=== PATIENT | male | born 1965 | race Caucasian/White ===

== ENCOUNTER 2018-04-18 08:28 | Inpatient (IN) | payer OTHER ==
[~2018-04-18] VITALS: Ht 182.9 cm; Wt 79.5 kg
[~2018-04-18 08:28] MED LIST: ASPIRIN81 M4 PO; ATORVASTATIN CA80 M1 PO; CUBICIN RF500 MG IV; DEXTROAMP-AMPHE20 MG PO; HYDROCODON-ACE1 EAC1 PO; LORAZEPAM0.5 M1 PO; METOPROLOL SUCC25 M1 PO; OXYBUTYNIN CHLOR5 M2 PO; TRAMADOL HCL50 M1 PO; TYSABRI300 MG/15 IV; VITAMIN D10000 UNIT PO; [UNRECOGNIZED DRUG - CODE] IV
--- NOTE | 2018-04-18 09:53 | ED GI/GU/ABDOMINAL COMPLAINT ---
History of Present Illness General Chief Complaint: General Adult Stated Complaint: SIB DR. CHEUNG FOR ?COLITIS Source: patient Exam Limitations: poor historian Vital Signs & Intake/Output Vital Signs & Intake/Output Vital Signs Date Time Temp Pulse Resp B/P B/P Pulse O2 O2 Flow FiO2 Mean Ox Delivery Rate 04/18 1418 98.8 74 20 151/70 96 04/18 1045 98.0 88 18 124/85 98 04/18 0834 98.4 92 18 107/71 98 Room Air Allergies Coded Allergies: methylprednisolone (From SOLU-MEDROL) (CHEST TIGHTNESS 03/26/17) Reconcile Medications Aspirin (Aspirin*) 81 MG TAB.CHEW 81 MG PO DAILY NSTEMI Atorvastatin Calcium 80 MG TABLET 80 MG PO 1700 NSTEMI Cholecalciferol (Vitamin D3) (Vitamin D) 10,000 UNIT CAPSULE 2 CAP PO DAILY SUPPLEMENT (Reported) Daptomycin (Cubicin Rf) 500 MG VIAL 500 MG IV Q30D multiple sclerosis ( Reported) Heparin Sodium,Porcine/D5w (Heparin 25,000 Unit/250 Ml-D5w) 25,000 UNIT/250 ML ( 100 UNIT/ML) IV.SOLN 1 BAG IV CONTINOUS INFUSION ACS per ACS protocol Hydrocodone/Acetaminophen (Hydrocodon-Acetaminophn 10-325) 10 MG-325 MG TABLET 1 TAB PO 4XDP PRN PAIN (Reported) Lorazepam 0.5 MG TABLET 1-2 TAB PO QPM PRN SLEEP (Reported) Metoprolol Succinate 25 MG TAB 6.25 MG PO BID NSTEMI Natalizumab (Tysabri) (Unknown Strength) VIAL (Unknown Dose) IV Q30D MS ( Reported) Oxybutynin Chloride 5 MG TABLET 1 TAB PO BID PRN BLADDER (Reported) Tramadol HCl 50 MG TABLET 1 TAB PO AD PRN PAIN (Reported) Triage Note: 52 YO MALE TO TRIAGE FOR EVAL OF ABD PAIN AND +NVD. STATES HX OF MS AND RECETNLY STARTED ON RUTUXIN AND SINCE THEN HE HAS BEEN HAVING +DIARRHEA. Triage Nurses Notes Reviewed? yes HPI: 52-year-old male who presents to the emergency department with intermittent abdominal cramping pain and diarrhea. He tells me that last Saturday, approximately a week and a half ago, he was started on Rituxan for his multiple sclerosis. Since then he's had significant problems with abdominal cramping and diarrhea. He denies any blood in his stool. He denies any nausea or vomiting. He does say that he is unable to eat but is able to tolerate his oral medications. His abdominal pain is diffuse in the lower abdomen. He denies any fevers or chills. Nothing really seems to help his pain. He is unaware of anything that makes it worse. Past History Travel History Traveled to [place] past 21 day No Medical History Any Pertinent Medical History? see below for history Neurological: multiple sclerosis EENT: NONE Cardiovascular: myocardial infarction Respiratory: NONE Gastrointestinal: NONE Hepatic: NONE Renal: NONE Musculoskeletal: NONE Psychiatric: NONE Endocrine: NONE Blood Disorders: NONE Cancer(s): NONE Other Medical Hx: Lyme disease History of MRSA: No History of VRE: No History of CDIFF: No Surgical History Surgical History: COLONOSCOPY - SEP 2016 WNL multiple lumbar back surgeries Psychosocial History Who do you live with Patient/Self What is your primary language Korean Tobacco Use: Never used Family History Family History, If Any: Relation not specified for: *No pertinent family history Hx Contributory? Yes Review of Systems Review of Systems Constitutional: Reports: no symptoms, malaise, weakness. Denies: chills, diaphoresis, fever. EENTM: Reports: see HPI. Denies: blurred vision, double vision, visual changes, eye pain. Respiratory: Denies: cough, short of breath, sputum production. Cardiovascular: Denies: chest pain, edema, orthopena, palpitations. GI: Reports: see HPI, abdominal pain, bloating, diarrhea, changes in stool. Denies: melena, nausea, bloody stool, vomiting. Genitourinary: Reports: see HPI (INCONTINENCE RELATED TO ms). Skin: Denies: no symptoms. Neurological/Psychological: Reports: numbness, tingling (RELATED TO HIS ms), weakness. Hematologic/Endocrine: Denies: no symptoms. All Other Systems: Reviewed and Negative Physical Exam Physical Exam General Appearance: well developed/nourished, no apparent distress, lethargic Head: atraumatic, normal appearance Eyes: Bilateral: normal appearance. Neck: normal inspection, supple, full range of motion Respiratory: normal breath sounds, no respiratory distress Cardiovascular: regular rate/rhythm Gastrointestinal: normal bowel sounds, tenderness Rectal: deferred Extremities: normal range of motion Neurologic/Psych: awake, alert Core Measures ACS in differential dx? No Sepsis Present: No Sepsis Focused Exam Completed? No Progress Differential Diagnosis: COLITIS, GASTROENTERITIS Plan of Care: Orders Procedure Date/time Status CULTURE,STOOL 04/18 1038 Active C.DIFFICILE 04/18 1038 Active CBC WITHOUT DIFFERENTIAL 04/18 0953 Complete LIPASE 04/18 09 Complete COMPREHENSIVE METABOLIC PANEL 04/18 09 Complete Current Medications Sig/Bina Start time Last Medication Dose Stop Time Status Admin Metronidazole 500 MG IQ8 04/18 1600 UNVr (Flagyl) N/A 1 UNIT (No Carrier) Ceftriaxone Sodium 1,000 MG ONCE ONE 04/18 1545 UNVr (Rocephin) 04/18 1546 Laboratory Tests 04/18/18 1015: Anion Gap 13, Estimated GFR > 60, BUN/Creatinine Ratio 17.1, Glucose 112 H, Calcium 9.7, Total Bilirubin 0.4, AST 33, ALT 27, Alkaline Phosphatase 107, Total Protein 7.2, Albumin 4.6, Globulin 2.6, Albumin/Globulin Ratio 1.8, Lipase 33, CBC w Diff MAN DIFF ORDERED, RBC 5.52, MCV 89.5, MCH 30.2, MCHC 33.7, RDW 13.8, MPV 7.8, Gran % 71.4, Lymphocytes % 17.5 L, Monocytes % 9.4 H, Eosinophils % 1.4, Basophils % 0.3, Absolute Granulocytes 12.9 H, Absolute Lymphocytes 3.2, Absolute Monocytes 1.7 H, Absolute Eosinophils 0.3, Absolute Basophils 0, Platelet Estimate ADEQUATE, Normocytic RBCs VERIFIED, Normochromic RBCs VERIFIED Microbiology 04/18 1236 STOOL: Clostridium difficile Toxin A & B - RECD 04/18 1236 STOOL: Stool Culture - RECD Pt CT scan notes pancolitis with wbc 18k. pt continues to have frequent stools. Discussed his case with the hospitalist and they will admit. MOD paged. Waiting to hear back. Diagnostic Imaging: Viewed by Me: CT Scan. Radiology Impression: pancolitis Initial ED EKG: none Departure Departure Disposition: STILL A PATIENT Condition: Stable Clinical Impression Primary Impression: Pancolitis Referrals: Patient Has No Primary Care Dr (PCP/Family) Departure Forms: Customer Survey General Discharge Information Admission Note Spoke With: Tamika DANG,Luis Angel Documentation of Exam: Documentation of any treatments & extenuating circumstances including Concerns Regarding Discharge (functional status, medication knowledge or non-compliance, living conditions, etc.) that warrant an admission rather than observation: Discussed pancolitis diagnosis with wbc. possibly rituxan induced. c.diff pending. ivf and IV abx needed. Admission to medicine is pending. Both hospitalist monitor worker and MOD aware.
[2018-04-18 10:25] LABS: ABSOLUTE BASOPHIL COUNT 0 /CUMM (0.0-0.2); ABSOLUTE EOSINOPHIL COUNT 0.3 /CUMM (0.0-0.7); ABSOLUTE GRANULOCYTE CT 12.9 /CUMM (1.4-6.5); ABSOLUTE LYMPH COUNT 3.2 /CUMM (1.2-3.4); ABSOLUTE MONOCYTE COUNT 1.7 /CUMM (0.10-0.60); BASOPHIL % 0.3 % (0.0-2.0); EOSINOPHIL % 1.4 % (0-5); HEMATOCRIT 49.4 % (42-52); MEAN CORPUSCULAR HGB 30.2 PG (27.0-31.0); MEAN CORPUSCULAR HGB CONC 33.7 G/DL (33.0-37.0); MEAN CORPUSCULAR VOLUME 89.5 FL (80.0-94.0); MEAN PLATELET VOLUME 7.8 FL (7.4-10.4); PLATELET COUNT 363 /CUMM (130-400); RBC DISTRIBUTION WIDTH 13.8 % (11.5-14.5); RED BLOOD CELL CT 5.52 /CUMM (4.70-6.10)
[2018-04-18 10:27] LABS: GRANULOCYTE % 71.4 % (42.2-75.2)
--- NOTE | 2018-04-18 14:43 | CT SCAN REPORT ---
EXAMINATION: CT ABDOMEN AND PELVIS WITH CONTRAST CLINICAL INFORMATION: Abdominal pain, colitis. COMPARISON: None TECHNIQUE: Multidetector volumetric imaging was performed of the abdomen and pelvis following IV administration of 95 mL of Optiray 320 intravenous contrast. Sagittal and coronal reformatted images were obtained on the technologist's workstation. DLP: 271 mGy-cm FINDINGS: LUNG BASES: The visualized lung bases are unremarkable. Bibasilar atelectasis is present. LIVER, GALLBLADDER, AND BILIARY TREE: The liver is normal in size, shape, and attenuation. No focal hepatic lesion or biliary ductal dilatation is present. The gallbladder is unremarkable with no evidence of radiopaque gallstones, gallbladder wall thickening, or obvious pericholecystic inflammatory changes. PANCREAS: Scattered punctate calcifications are noted in the pancreas which suggests the presence of old pancreatitis. SPLEEN: Unremarkable. ADRENAL GLANDS: Unremarkable. KIDNEYS AND URETERS: The kidneys are normal in size, shape, and attenuation. No hydronephrosis, hydroureter, or calculi seen. No perinephric stranding. BLADDER: Unremarkable. GASTROINTESTINAL TRACT: The entire colon is abnormal with what appears to be mucosal edema and thickening. Findings are suggestive of a koo colitis. The terminal ileum is normal. The appendix is not seen with certainty but there is no evidence to suggest the presence of appendicitis. ABDOMINAL WALL: No significant hernia is appreciated. LYMPH NODES: Normal. VASCULAR: Atherosclerotic change is present in the aorta with mild dilatation of the inferior renal aorta with a maximal dimension of 2.85 cm. At a level just below the renal arteries, some eccentric posterior non-calcified thrombus is present. The celiac, SMA and FRANCISCO are patent. Atherosclerotic changes are present at both renal ostia. PELVIC VISCERA: The prostate and seminal vesicles appear normal. OSSEOUS STRUCTURES: Severe degenerative changes present in the spine with near obliteration of disc space at L4-L5 and L5-S1. The SI joints are normal. The hip joints appear normal. IMPRESSION: Markedly abnormal colon with thickening and edema throughout. Findings consistent with koo colitis. Ulcerative colitis would be the differential along with other etiologies.
--- NOTE | 2018-04-18 17:08 | History & Physical ---
Maile DANG,Khadra 04/18/18 1707: General Information and HPI MD Statement: I have seen and personally examined JUAN R SOLER and documented this H&P. The patient is a 52 year old M who presented with a patient stated chief complaint of []. Source of Information: patient, old records, EMS Exam Limitations: no limitations History of Present Illness: Patient is a 52 YO M with PMH signficant for MS diagnosed 2005, urinary incontinence, NSTEMI, medical marijuana presented to [place] with progressive diarrhea, nausea, abdominal pain for the past week. Pateint was started on Rituximab on apr 08 with discontinuation of dapto/natalizumab ( as AIMEE virus positive) after which his symptoms started to get worse. He reports loose watery stools without any blood/mucus upto 10 per day. He did report fevers on and off, never checked, abdominal pain diffuse not specifically related to bowel movement. Significantly impaired appetite. MS diagnosed 2005 was on dapto/natalizumab monthly infusions. Urinary incontinence and lower extermity weakness secondary to it impairs ADLs although able to perform, uses rollator to walk. Lives alone. Speaks depressed secondary to disease. Allergies/Medications Allergies: Coded Allergies: methylprednisolone (From SOLU-MEDROL) (CHEST TIGHTNESS 03/26/17) Home Med list Aspirin (Aspirin*) 81 MG TAB.CHEW 81 MG PO DAILY NSTEMI Atorvastatin Calcium 80 MG TABLET 80 MG PO 1700 NSTEMI Cholecalciferol (Vitamin D3) (Vitamin D) 10,000 UNIT CAPSULE 2 CAP PO DAILY SUPPLEMENT (Reported) Hydrocodone/Acetaminophen (Hydrocodon-Acetaminophn 10-325) 10 MG-325 MG TABLET 1 TAB PO 4XDP PRN PAIN (Reported) Lorazepam 0.5 MG TABLET 1-2 TAB PO QPM PRN SLEEP (Reported) Metoprolol Succinate 25 MG TAB 6.25 MG PO BID NSTEMI Oxybutynin Chloride 5 MG TABLET 1 TAB PO BID PRN BLADDER (Reported) Tramadol HCl 50 MG TABLET 1 TAB PO AD PRN PAIN (Reported) Compliance With Home Meds: FAIR Past History Travel History Traveled to [place] past 21 day No Medical History Neurological: multiple sclerosis EENT: NONE Cardiovascular: myocardial infarction Respiratory: NONE Gastrointestinal: NONE Hepatic: NONE Renal: NONE Musculoskeletal: NONE Psychiatric: NONE Endocrine: NONE Blood Disorders: NONE Cancer(s): NONE Other Medical Hx: Lyme disease History of MRSA: No History of VRE: No History of CDIFF: No Surgical History Surgical History: COLONOSCOPY - SEP 2016 WNL multiple lumbar back surgeries Past Family/Social History Family History Relations & Conditions if any Relation not specified for: *No pertinent family history Psychosocial History Smoking Status: Current Everyday Smoker Illicit Drug Use: marijuana Living Will? no Functional Ability ADLs Independent: dressing, eating, toileting, bathing. Ambulation: rollator IADLs Independent: shopping, housework, finances, food prep, telephone, transportation , medication admin. Review of Systems Review of Systems Constitutional: Reports: see HPI. Exam & Diagnostic Data Last 24 Hrs of Vital Signs/I&O Vital Signs Date Time Temp Pulse Resp B/P B/P Pulse O2 O2 Flow FiO2 Mean Ox Delivery Rate 04/18 1418 98.8 74 20 151/70 96 04/18 1045 98.0 88 18 124/85 98 04/18 0834 98.4 92 18 107/71 98 Room Air Intake & Output 04/18 1600 04/18 0800 04/18 0000 Intake Total 1000 Output Total Balance 1000 Intake, IV 1000 Intake, Oral 0 Patient 81.647 kg Weight Weight Reported by Patient Measurement Method Physical Exam General Appearance Alert, Oriented X3, Cooperative, depressed Skin No Rashes, No Breakdown Skin Temp/Moisture Exam: Warm/Dry Sepsis Skin Exam (color): Normal for Ethnicity HEENT Atraumatic, PERRLA, EOMI Neck Supple, No JVD Cardiovascular Regular Rate, Normal S1, Normal S2 Lungs Clear to Auscultation, Normal Air Movement Abdomen Normal Bowel Sounds, Soft, tenderness in the left lower quadrant with deep palpation Neurological Normal Speech, Normal Tone, decreased strenght in lower extremities Extremities No Clubbing, No Cyanosis, No Edema Body Front and Back (Adult) 1) decreased strength 2) abdominal tenderness present Last 24 Hrs of Labs/Nathan: Laboratory Tests 04/18/18 1015: Anion Gap 13, Estimated GFR > 60, BUN/Creatinine Ratio 17.1, Glucose 112 H, Lactic Acid Pending, Calcium 9.7, Total Bilirubin 0.4, AST 33, ALT 27, Alkaline Phosphatase 107, Total Protein 7.2, Albumin 4.6, Globulin 2.6, Albumin/Globulin Ratio 1.8, Lipase 33, CBC w Diff MAN DIFF ORDERED, RBC 5.52, MCV 89.5, MCH 30.2, MCHC 33.7, RDW 13.8, MPV 7.8, Gran % 71.4, Lymphocytes % 17.5 L, Monocytes % 9.4 H, Eosinophils % 1.4, Basophils % 0.3, Absolute Granulocytes 12.9 H, Absolute Lymphocytes 3.2, Absolute Monocytes 1.7 H, Absolute Eosinophils 0.3, Absolute Basophils 0, Platelet Estimate ADEQUATE, Normocytic RBCs VERIFIED, Normochromic RBCs VERIFIED Microbiology 04/18 1744 STOOL: Ova and Parasite Macroscopic Exam - ORD 04/18 1236 STOOL: Clostridium difficile Toxin A & B - RECD 04/18 1236 STOOL: Stool Culture - RECD Assessment/Plan Assessment: Patient is a 52 YO middle aged male presented to ER with progressive diarrhea, nausea, abdominal pain after started on rituxin infusion first dose on apr 08 for Multiple sclerosis. Patient was on dapto/natalizumab infusions previously. Loose watery diarrhea without blood/mucus, diffuse abdominal pain, on and off fevers/chills. VS stable at presentation. Labs are significant for white count of 18, granulocytosis (mild), normal Cr. Lactic acid pending. CT abdomen and pelvis suggestive of pancolitis. Stool studies for C.diff and cultures, ova, parasites sent. Differential Dawson colitis Probably due to Rituximab, other possibilities are C.diff, infectious vs inflammatory causes. He did have leukocytosis might be reactive. Plan Admit to general medicine floor Dawson-colitis * stool for C.diff, culture, ova and parasites * IV metronidazole, ceftriaxone (mucosal seapage) * If positive for C.diff add oral vanco * Full liquid diet * Gentle hydration H/o MS Patient was on dapto/natalizumab. 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 Started on rituximab and had colitis after first dose. * Hold rituximab * Continue pain medicaitons Urinary incontinence MS related * continue oxybutynin 5mg BID h/o NSTEMI continue Aspirin, Atorvastatin * Patient was unsure if on metoprolol, needs to be confirmed Depressed Patient is very depressed about his quality of life. Please consider psych evaluation. DVT prophylaxis SC heparin Code status DNR/DNI per patient -- needs to be readdressed As Ranked By This Provider Problem List: 1. Pancolitis Core Measures/Misc (04/21) Acute Coronary Syndrome ACS Diagnosis: No Congestive Heart Failure Congestive Heart Failure Diagnosis No Cerebrovascular Accident CVA/TIA Diagnosis: No VTE (View Protocol) VTE Risk Factors Acute Medical Illness No Mechanical VTE Prophylaxis d/t N/A MechProphylax Ordered No VTE Pharm Prophylaxis d/t NA PharmProphylax ordered Sepsis (View protocol) Sepsis Present: No If YES complete Sepsis Event Note If YES complete Sepsis Event Note Luis Angel Lundberg 04/18/18 1711: Core Measures/Misc (04/21) Sepsis (View protocol) If YES complete Sepsis Event Note If YES complete Sepsis Event Note Attending MD Review Statement Attending Statement Attending MD Statement: examined this patient, discuss w/resident/PA/EDGE STRIPPER, agreed w/resident/PA/EDGE STRIPPER, discussed with family, reviewed EMR data (avail), discussed with nursing, discussed with case mgmt, reviewed images, amended to note Attending Assessment/Plan: 52 o/m with pmh of NSTEMI and Multiple sclerosis comes with diarrhea for few days sent from Dr Roth office recently started on rituxan for MS. Patient attributes to his symptoms to his new medication regimen. He is found to have leukocytosis WBC [address] abdomen/pelvis. He denies eating outside or blood in stools. Admit to gen/med for pancolitis, profuse diarrhea and dehydration requiring supprotive care with IVF, empiric abx and send stool samples to rule out infectious causes. Consult GI and continue with supportive care for his MS. He uses rollator at home to walk. GI/DVT prophylaxis full code.
[2018-04-18 18:15] VITALS: BP 142/82
[2018-04-18 22:11] VITALS: BP 146/80
--- NOTE | 2018-04-19 02:36 | PN- Housestaff ---
See Addendum Subjective Follow-up For: Pancolitis Multiple Sclerosis Urinary incontinence Subjective: Patient still had significant diarrhea, throughout the night he had significant spasms. He reports improvement in abdominal pain, however painful everywhere else. No fevers overnight. Lost his IV and not on IV fluids since 4am. Review of Systems Constitutional: Reports: see HPI. Objective Last 24 Hrs of Vital Signs/I&O Vital Signs Date Time Temp Pulse Resp B/P B/P Pulse O2 O2 Flow FiO2 Mean Ox Delivery Rate 04/18 2211 98.4 85 18 146/80 98 Room Air 04/18 1815 98.2 70 18 142/82 97 Room Air Room Air 04/18 1741 98.6 85 18 136/84 98 Room Air 04/18 1418 98.8 74 20 151/70 96 04/18 1045 98.0 88 18 124/85 98 04/18 0834 98.4 92 18 107/71 98 Room Air Intake & Output 04/19 0800 04/19 0000 04/18 1600 Intake Total 1000 Output Total 100 Balance -100 1000 Intake, IV 1000 Intake, Oral 0 Output, Urine 100 Patient 71.894 kg 81.647 kg Weight Weight Bed scale Reported by Patient Measurement Method Physical Exam General Appearance: Alert, Oriented X3, Cooperative Skin: No Rashes, No Breakdown Skin Temp/Moisture Exam: Warm/Dry HEENT: Atraumatic, PERRLA, EOMI Neck: Supple, No JVD Cardiovascular: Regular Rate, Normal S1, Normal S2 Lungs: Clear to Auscultation, Normal Air Movement Abdomen: Normal Bowel Sounds, Soft, mild tenderness present - on commode Current Medications: Current Medications Sig/Bina Start time Last Medication Dose Route Stop Time Status Admin Acetaminophen 650 MG Q6P PRN 04/180 AC PO Acetaminophen 1,000 MG Q6P PRN 04/18 2130 AC IV Aspirin 81 MG DAILY 04/19 09 AC 04/19 PO 0944 Atorvastatin Calcium 80 MG 1700 04/19 1700 AC PO Baclofen 10 MG TID PRN 04/19 09 AC PO Ceftriaxone Sodium 1,000 MG 1600 04/19 1600 AC IV Ceftriaxone Sodium 0 .STK-MED ONE 04/18 1602 DC .ROUTE Ceftriaxone Sodium 1,000 MG ONCE ONE 04/18 1545 DC 04/18 IV 04/18 1546 1609 Cholecalciferol 1,000 IU DAILY 04/19 0900 AC 04/19 PO 0944 Heparin Sodium 5,000 UNIT Q8 04/18 1743 AC 04/19 (Porcine) SC 0513 Hydrocodone Bitart/ 1 TAB Q4-6 PRN 04/18 1815 AC 04/19 Acetaminophen PO 0943 Hydroxyzine HCl 25 MG ONCE ONE 04/19 0400 DC 04/19 PO 04/19 0401 0413 Lorazepam 0.5 MG ONCE ONE 04/19 0115 DC 04/19 PO 04/19 0116 0141 Lorazepam 1 MG AT BEDTIME PRN 04/18 1845 AC 04/19 PO 0018 Lorazepam See Dose QPM PRN 04/18 1815 DC Insts (1) PO 04/25 1814 Melatonin 0 .STK-MED ONE 04/19 0413 DC PO Melatonin 5 MG AT BEDTIME 04/19 0400 AC 04/19 PO 0413 Metronidazole 500 MG IQ8 04/19 0000 AC 04/19 N/A 1 UNIT IV 0944 Metronidazole 500 MG IQ8 04/18 1600 DC 04/18 N/A 1 UNIT IV 1609 Nicotine 21 MG DAILY 04/18 2041 AC 04/19 TOP 0943 Oxybutynin Chloride 5 MG BID PRN 04/18 1815 AC 04/19 PO 0944 Oxycodone HCl 0 .STK-MED ONE 04/18 1318 DC PO Oxycodone HCl 5 MG ONCE ONE 04/18 1315 DC 04/18 PO 04/18 1316 1330 Sodium Chloride 1,000 ML Q13H 04/18 1830 AC 04/19 IV 0937 Sodium Chloride 1,000 ML CONTINOUS INFUSION 04/18 1715 DC IV Sodium Chloride 1,000 ML BOLUS ONE 04/18 1615 DC 04/18 IV 04/18 1714 1609 Sodium Chloride 1,000 ML BOLUS ONE 04/18 1200 DC 04/18 IV 04/18 1259 1234 Sodium Chloride 1,000 ML BOLUS ONE 04/18 0930 DC 04/18 IV 04/18 1029 1013 Tramadol HCl 50 MG DAILY 04/19 0900 AC PO Dose Instructions: (1)Lorazepam: 1-2 TAB Last 24 Hrs of Lab/Nathan Results Last 24 Hrs of Labs/Mics: Laboratory Tests 04/19/18 0620: Anion Gap 12, Estimated GFR > 60, BUN/Creatinine Ratio 11.7, CBC w Diff NO MAN DIFF REQ, RBC 4.84, MCV 89.2, MCH 30.6, MCHC 34.3, RDW 14.1, MPV 8.4, Gran % 73.9, Lymphocytes % 15.3 L, Monocytes % 9.0, Eosinophils % 1.4, Basophils % 0.4 , Absolute Granulocytes 11.8 H, Absolute Lymphocytes 2.4, Absolute Monocytes 1.4 H, Absolute Eosinophils 0.2, Absolute Basophils 0.1 04/18/18 2200: Urine Color YEL, Urine Clarity CLEAR, Urine pH 6.0, Ur Specific [place] 1.020, Urine Protein NEG, Urine Ketones 40 H, Urine Nitrite NEG, Urine Bilirubin NEG, Urine Urobilinogen 0.2, Ur Leukocyte Esterase NEG, Ur Microscopic EXAM NOT REQUIRED, Urine Hemoglobin NEG, Urine Glucose NEG 04/18/18 1015: Anion Gap 13, Estimated GFR > 60, BUN/Creatinine Ratio 17.1, Glucose 112 H, Lactic Acid 1.8, Calcium 9.7, Total Bilirubin 0.4, AST 33, ALT 27, Alkaline Phosphatase 107, Total Protein 7.2, Albumin 4.6, Globulin 2.6, Albumin/Globulin Ratio 1.8, Lipase 33, CBC w Diff MAN DIFF ORDERED, RBC 5.52, MCV 89.5, MCH 30.2, MCHC 33.7, RDW 13.8, MPV 7.8, Gran % 71.4, Lymphocytes % 17.5 L, Monocytes % 9.4 H, Eosinophils % 1.4, Basophils % 0.3, Absolute Granulocytes 12.9 H, Absolute Lymphocytes 3.2, Absolute Monocytes 1.7 H, Absolute Eosinophils 0.3, Absolute Basophils 0, Platelet Estimate ADEQUATE, Normocytic RBCs VERIFIED, Normochromic RBCs VERIFIED Microbiology 04/18 4314 STOOL: Ova and Parasite Macroscopic Exam - COLB 04/18 1236 STOOL: Clostridium difficile Toxin A & B - RECD 04/18 1236 STOOL: Stool Culture - RECD Assessment/Plan Assessment: Patient is a 52 YO middle aged male presented to ER with progressive diarrhea, nausea, abdominal pain after started on rituxin infusion first dose on apr 08 for Multiple sclerosis. Patient was on dapto/natalizumab infusions previously. Loose watery diarrhea without blood/mucus, diffuse abdominal pain, on and off fevers/chills. VS stable at presentation. Labs are significant for white count of 18, granulocytosis (mild), normal Cr. Lactic acid pending. CT abdomen and pelvis suggestive of pancolitis. Stool studies for C.diff and cultures, ova, parasites sent. Plan Admit to general medicine floor Dawson-colitis Likely secondary to rituximab * stool for C.diff, culture, ova and parasites * IV metronidazole, ceftriaxone (mucosal seapage) * If positive for C.diff add oral vanco * Full liquid diet - advance as tolerated * Gentle hydration H/o MS Patient was on dapto/natalizumab. 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 Started on rituximab and had colitis after first dose. Ideally rituximab is not a good choice for patient with AIMEE virus, however now it is not a option anymore given intolerance. * Hold rituximab * Continue pain medicaitons * Consider other options like mitoxantrone Urinary incontinence MS related * continue oxybutynin 5mg BID h/o NSTEMI continue Aspirin, Atorvastatin * Patient was unsure if on metoprolol, needs to be confirmed Depressed Patient is very depressed about his quality of life. Please consider psych evaluation. DVT prophylaxis SC heparin Code status DNR/DNI per patient -- needs to be readdressed Problem List: 1. Pancolitis Pain Ratin Pain Location: everywhere Pain Goal: Pain 4 or less Pain Plan: tylenol vicodin Tomorrow's Labs & Rationales: cbc bep
[2018-04-19 07:36] VITALS: BP 126/65
[2018-04-19 08:18] LABS: ABSOLUTE BASOPHIL COUNT 0.1 /CUMM (0.0-0.2); ABSOLUTE EOSINOPHIL COUNT 0.2 /CUMM (0.0-0.7); ABSOLUTE GRANULOCYTE CT 11.8 /CUMM (1.4-6.5); ABSOLUTE LYMPH COUNT 2.4 /CUMM (1.2-3.4); ABSOLUTE MONOCYTE COUNT 1.4 /CUMM (0.10-0.60); BASOPHIL % 0.4 % (0.0-2.0); EOSINOPHIL % 1.4 % (0-5); GRANULOCYTE % 73.9 % (42.2-75.2); MEAN CORPUSCULAR HGB 30.6 PG (27.0-31.0); MEAN CORPUSCULAR HGB CONC 34.3 G/DL (33.0-37.0); MEAN CORPUSCULAR VOLUME 89.2 FL (80.0-94.0); MEAN PLATELET VOLUME 8.4 FL (7.4-10.4); PLATELET COUNT 316 /CUMM (130-400); RBC DISTRIBUTION WIDTH 14.1 % (11.5-14.5); RED BLOOD CELL CT 4.84 /CUMM (4.70-6.10); WHITE BLOOD CELL COUNT 15.9 /CUMM (4.8-10.8)
[2018-04-19 09:12] LABS: HEMATOCRIT 43.2 % (42-52)
--- NOTE | 2018-04-19 13:28 | Cons- Gastroenterology ---
General Information and HPI Consulting Request Date of Consult: 04/19/18 Requested By: Luis Angel Lundberg MD Reason for Consult: Colitis Allergies/Medications Allergies: Coded Allergies: methylprednisolone (From SOLU-MEDROL) (CHEST TIGHTNESS 03/26/17) Home Med List: Aspirin (Aspirin*) 81 MG TAB.CHEW 81 MG PO DAILY NSTEMI Atorvastatin Calcium 80 MG TABLET 80 MG PO 1700 NSTEMI Cholecalciferol (Vitamin D3) (Vitamin D) 10,000 UNIT CAPSULE 2 CAP PO DAILY SUPPLEMENT (Reported) Hydrocodone/Acetaminophen (Hydrocodon-Acetaminophn 10-325) 10 MG-325 MG TABLET 1 TAB PO 4XDP PRN PAIN (Reported) Lorazepam 0.5 MG TABLET 1-2 TAB PO QPM PRN SLEEP (Reported) Metoprolol Succinate 25 MG TAB 6.25 MG PO BID NSTEMI Oxybutynin Chloride 5 MG TABLET 1 TAB PO BID PRN BLADDER (Reported) Tramadol HCl 50 MG TABLET 1 TAB PO AD PRN PAIN (Reported) Current Medications: Current Medications Sig/Bina Start time Last Medication Dose Route Stop Time Status Admin Acetaminophen 650 MG Q6P PRN 04/18 2130 AC PO Acetaminophen 1,000 MG Q6P PRN 04/18 2130 AC IV Aspirin 81 MG DAILY 04/19 0900 AC 04/19 PO 0944 Atorvastatin Calcium 80 MG 1700 04/19 1700 AC PO Baclofen 5 MG AT BEDTIME 04/19 2100 AC PO Baclofen 10 MG TID PRN 04/19 0900 AC 04/19 PO 1102 Ceftriaxone Sodium 1,000 MG 1600 04/19 1600 AC IV Ceftriaxone Sodium 0 .STK-MED ONE 04/18 1602 DC .ROUTE Ceftriaxone Sodium 1,000 MG ONCE ONE 04/18 1545 DC 04/18 IV 04/18 1546 1609 Cholecalciferol 1,000 IU DAILY 04/19 0900 AC 04/19 PO 0944 Heparin Sodium 5,000 UNIT Q8 04/18 1743 AC 04/19 (Porcine) SC 0513 Hydrocodone Bitart/ 1 TAB Q4-6 PRN 04/18 1815 AC 04/19 Acetaminophen PO 0943 Hydroxyzine HCl 25 MG ONCE ONE 04/19 0400 DC 04/19 PO 04/19 0401 0413 Lorazepam 0.5 MG ONCE ONE 04/19 0115 DC 04/19 PO 04/19 0116 0141 Lorazepam 1 MG AT BEDTIME PRN 04/18 1845 AC 04/19 PO 0018 Lorazepam See Dose QPM PRN 04/18 1815 DC Insts (1) PO 04/25 1814 Melatonin 0 .STK-MED ONE 04/19 0413 DC PO Melatonin 5 MG AT BEDTIME 04/19 0400 AC 04/19 PO 0413 Metronidazole 500 MG IQ8 04/19 0000 AC 04/19 N/A 1 UNIT IV 0944 Metronidazole 500 MG IQ8 04/18 1600 DC 04/18 N/A 1 UNIT IV 1609 Nicotine 21 MG DAILY 04/18 2041 AC 04/19 TOP 0943 Oxybutynin Chloride 5 MG BID PRN 04/18 1815 AC 04/19 PO 0944 Oxycodone HCl 0 .STK-MED ONE 04/18 1318 DC PO Oxycodone HCl 5 MG ONCE ONE 04/18 1315 DC 04/18 PO 04/18 1316 1330 Sodium Chloride 1,000 ML Q13H 04/18 1830 AC 04/19 IV 0937 Sodium Chloride 1,000 ML CONTINOUS INFUSION 04/18 1715 DC IV Sodium Chloride 1,000 ML BOLUS ONE 04/18 1615 DC 04/18 IV 04/18 1714 1609 Tramadol HCl 50 MG DAILY 04/19 0900 AC 04/19 PO 0951 Dose Instructions: (1)Lorazepam: 1-2 TAB Past History Travel History Traveled to [place] past 21 day No Medical History Blood Transfusion Hx: No Neurological: multiple sclerosis EENT: NONE Cardiovascular: myocardial infarction Respiratory: NONE Gastrointestinal: NONE Hepatic: NONE Renal: NONE Musculoskeletal: NONE Psychiatric: NONE Endocrine: NONE Blood Disorders: NONE Cancer(s): NONE Other Medical Hx: Lyme disease Surgical History Surgical History: laminectomy, COLONOSCOPY - SEP 2016 multiple lumbar back surgeries Family History Relations & Conditions If Any: Relation not specified for: *No pertinent family history Psychosocial History Where Do You Live? Home Services at Home: None Smoking Status: Current Everyday Smoker Illicit Drug Use: marijuana Living Will? no Functional Ability ADLs Independent: dressing, eating, toileting, bathing. Ambulation: rollator IADLs Independent: shopping, housework, finances, food prep, telephone, transportation , medication admin. Exam & Diagnostic Data Vital Signs and I&O Vital Signs Date Time Temp Pulse Resp B/P B/P Pulse O2 O2 Flow FiO2 Mean Ox Delivery Rate 04/19 0736 97.9 58 18 126/65 100 04/18 2211 98.4 85 18 146/80 98 Room Air 04/18 1815 98.2 70 18 142/82 97 Room Air Room Air 04/18 1741 98.6 85 18 136/84 98 Room Air 04/18 1418 98.8 74 20 151/70 96 Intake & Output 04/19 04004/18 04004/17 0400 Intake Total 1000 Output Total 250 100 Balance -250 -100 1000 Intake, IV 1000 Intake, Oral 0 Number 3 Bowel Movements Output, Urine 250 100 Patient 167 lb 159 lb 180 lb Weight Weight Bed scale Reported by Patient Measurement Method Results Pertinent Lab Results: Laboratory Tests 04/19 04/18 0620 2200 Chemistry Sodium (137 - 145 mmol/L) 138 Potassium (3.5 - 5.1 mmol/L) 4.0 Chloride (98 - 107 mmol/L) 100 Carbon Dioxide (22 - 30 mmol/L) 25 Anion Gap (5 - 16) 12 BUN (9 - 20 mg/dL) 7 L Creatinine (0.7 - 1.2 mg/dL) 0.6 L Estimated GFR (>60 ml/min) > 60 BUN/Creatinine Ratio (7 - 25 %) 11.7 Hematology CBC w Diff NO MAN DIFF REQ WBC (4.8 - 10.8 /CUMM) 15.9 H RBC (4.70 - 6.10 /CUMM) 4.84 Hgb (14.0 - 18.0 G/DL) 14.8 Hct (42 - 52 %) 43.2 MCV (80.0 - 94.0 FL) 89.2 MCH (27.0 - 31.0 PG) 30.6 MCHC (33.0 - 37.0 G/DL) 34.3 RDW (11.5 - 14.5 %) 14.1 Plt Count (130 - 400 /CUMM) 316 MPV (7.4 - 10.4 FL) 8.4 Gran % (42.2 - 75.2 %) 73.9 Lymphocytes % (20.5 - 51.1 %) 15.3 L Monocytes % (1.7 - 9.3 %) 9.0 Eosinophils % (0 - 5 %) 1.4 Basophils % (0.0 - 2.0 %) 0.4 Absolute Granulocytes (1.4 - 6.5 /CUMM) 11.8 H Absolute Lymphocytes (1.2 - 3.4 /CUMM) 2.4 Absolute Monocytes (0.10 - 0.60 /CUMM) 1.4 H Absolute Eosinophils (0.0 - 0.7 /CUMM) 0.2 Absolute Basophils (0.0 - 0.2 /CUMM) 0.1 Urines Urine Color (YEL,AMB,STR) YEL Urine Clarity (CLEAR) CLEAR Urine pH (5.0 - 8.0) 6.0 Ur Specific [place] (1.001 - 1.035) 1.020 Urine Protein (NEG,<30 MG/DL) NEG Urine Ketones (NEG) 40 H Urine Nitrite (NEG) NEG Urine Bilirubin (NEG) NEG Urine Urobilinogen (0.1 - 1.0 EU/dl) 0.2 Ur Leukocyte Esterase (NEG) NEG Ur Microscopic EXAM NOT REQUIRED Urine Hemoglobin (NEG) NEG Urine Glucose (N MG/DL) NEG 04/18 1015 Chemistry Sodium (137 - 145 mmol/L) 137 Potassium (3.5 - 5.1 mmol/L) 3.8 Chloride (98 - 107 mmol/L) 96 L Carbon Dioxide (22 - 30 mmol/L) 29 Anion Gap (5 - 16) 13 BUN (9 - 20 mg/dL) 12 Creatinine (0.7 - 1.2 mg/dL) 0.7 Estimated GFR (>60 ml/min) > 60 BUN/Creatinine Ratio (7 - 25 %) 17.1 Glucose (65 - 99 mg/dL) 112 H Lactic Acid (0.7 - 2.1 mmol/L) 1.8 Calcium (8.4 - 10.2 mg/dL) 9.7 Total Bilirubin (0.2 - 1.3 mg/dL) 0.4 AST (17 - 59 U/L) 33 ALT (21 - 72 U/L) 27 Alkaline Phosphatase (< 127 U/L) 107 Total Protein (6.3 - 8.2 g/dL) 7.2 Albumin (3.5 - 5.0 g/dL) 4.6 Globulin (1.9 - 4.2 gm/dL) 2.6 Albumin/Globulin Ratio (1.1 - 2.2 %) 1.8 Lipase (23 - 300 U/L) 33 Hematology CBC w Diff MAN DIFF ORDERED WBC (4.8 - 10.8 /CUMM) 18.0 H RBC (4.70 - 6.10 /CUMM) 5.52 Hgb (14.0 - 18.0 G/DL) 16.7 Hct (42 - 52 %) 49.4 MCV (80.0 - 94.0 FL) 89.5 MCH (27.0 - 31.0 PG) 30.2 MCHC (33.0 - 37.0 G/DL) 33.7 RDW (11.5 - 14.5 %) 13.8 Plt Count (130 - 400 /CUMM) 363 MPV (7.4 - 10.4 FL) 7.8 Gran % (42.2 - 75.2 %) 71.4 Lymphocytes % (20.5 - 51.1 %) 17.5 L Monocytes % (1.7 - 9.3 %) 9.4 H Eosinophils % (0 - 5 %) 1.4 Basophils % (0.0 - 2.0 %) 0.3 Absolute Granulocytes (1.4 - 6.5 /CUMM) 12.9 H Absolute Lymphocytes (1.2 - 3.4 /CUMM) 3.2 Absolute Monocytes (0.10 - 0.60 /CUMM) 1.7 H Absolute Eosinophils (0.0 - 0.7 /CUMM) 0.3 Absolute Basophils (0.0 - 0.2 /CUMM) 0 Platelet Estimate (ADEQUATE) ADEQUATE Normocytic RBCs VERIFIED Normochromic RBCs VERIFIED Imaging/Other Studies: CT scan: IMPRESSION: Markedly abnormal colon with thickening and edema throughout. Findings consistent with koo colitis. Ulcerative colitis would be the differential along with other etiologies. Stool culture pending Stool C. difficile toxin negative. Assessment/Plan Assessment/Recommendations: Acute colitis (abdominal pain, nonbloody diarrhea, leukocytosis), now with some improvement in hospital after being placed on empiric antibiotics. Etiology is infectious versus chemotherapy-induced. There are multiple case reports of rituximab-induced colitis (usually ulcerative colitis-like, but rarely Crohn's- like). Recommendations * Await final results of stool culture * Continue empiric broad coverage antibiotics * Anticholinergic medication such as dicyclomine or hyoscyamine for pain as needed * Avoid narcotics, antidiarrheal agents * Bismuth subsalicylate 4 times a day * Low fiber diet * Low threshold to performing flexible sigmoidoscopy with biopsy Consult Acknowledgment - Thank you for your consult request.
[2018-04-19 14:30] VITALS: BP 123/64
[2018-04-19 21:56] VITALS: BP 124/84
[2018-04-20 06:23] VITALS: BP 154/86
[2018-04-20 09:22] LABS: ABSOLUTE BASOPHIL COUNT 0 /CUMM (0.0-0.2); ABSOLUTE EOSINOPHIL COUNT 0.7 /CUMM (0.0-0.7); ABSOLUTE GRANULOCYTE CT 7.7 /CUMM (1.4-6.5); ABSOLUTE LYMPH COUNT 2.6 /CUMM (1.2-3.4); ABSOLUTE MONOCYTE COUNT 1.1 /CUMM (0.10-0.60); BASOPHIL % 0.4 % (0.0-2.0); EOSINOPHIL % 5.9 % (0-5); GRANULOCYTE % 63.6 % (42.2-75.2); MEAN CORPUSCULAR HGB 30.3 PG (27.0-31.0); MEAN CORPUSCULAR HGB CONC 33.7 G/DL (33.0-37.0); MEAN CORPUSCULAR VOLUME 89.8 FL (80.0-94.0); MEAN PLATELET VOLUME 8.4 FL (7.4-10.4); PLATELET COUNT 308 /CUMM (130-400); RBC DISTRIBUTION WIDTH 14.1 % (11.5-14.5); RED BLOOD CELL CT 4.24 /CUMM (4.70-6.10); WHITE BLOOD CELL COUNT 12.1 /CUMM (4.8-10.8)
--- NOTE | 2018-04-20 09:30 | PN- Housestaff ---
Rolando Delaney 04/20/18 0930: Subjective Follow-up For: Pancolitis Subjective: Patient was seen and examined today. He was very frustrated and sarcastic about every question asked. He said he did not feel any better. Review of Systems Constitutional: Reports: see HPI. Denies: chills, diaphoresis, fever, malaise, weakness, unexplained weight loss. Objective Last 24 Hrs of Vital Signs/I&O Vital Signs Date Time Temp Pulse Resp B/P B/P Pulse O2 O2 Flow FiO2 Mean Ox Delivery Rate 04/20 06 97.5 73 20 154/86 96 04/19 215 98.2 66 20 124/84 100 Room Air 04/19 1430 97.9 88 18 123/64 100 Room Air Intake & Output 04/20 1600 04/20 0804/20 0000 Intake Total 600 Output Total Balance 600 Intake, IV 600 Number 2 Bowel Movements Patient 171 lb Weight Weight Bed scale Measurement Method Physical Exam General Appearance: Alert, Oriented X3, Cooperative, No Acute Distress Cardiovascular: Regular Rate, No Murmurs Lungs: Clear to Auscultation, Normal Air Movement Abdomen: Normal Bowel Sounds, Soft, No Tenderness, No Hepatospenomegaly, No Masses Neurological: Normal Speech, Strength at 5/5 X4 Ext, Normal Tone, Sensation Intact Extremities: No Clubbing, No Cyanosis, No Edema, Normal Pulses, No Tenderness/ Swelling Current Medications: Current Medications Sig/Bina Start time Last Medication Dose Route Stop Time Status Admin Acetaminophen 650 MG Q6P PRN 04/180 AC PO Acetaminophen 1,000 MG Q6P PRN 04/18 213 AC 04/20 IV 0502 Aspirin 81 MG DAILY 04/19 09 AC 04/20 PO 914 Atorvastatin Calcium 80 MG 1700 04/19 1700 AC 04/20 PO 1648 Baclofen 5 MG AT BEDTIME 04/19 2100 AC 04/19 PO 202 Baclofen 10 MG TID PRN 04/19 900 AC 04/20 PO 1425 Bismuth Subsalicylate 30 ML PCHS 04/19 2100 AC 04/20 PO 1829 Ceftriaxone Sodium 1,000 MG 1600 04/19 1600 AC 04/20 IV 1648 Cholecalciferol 1,000 IU DAILY 04/19 900 AC 04/20 PO 914 Dicyclomine HCl 20 MG 4 TIMES/DAY PRN 04/19 1900 AC 04/19 PO 2147 Heparin Sodium 5,000 UNIT Q8 04/18 1743 AC 04/20 (Porcine) SC 1327 Hydrocodone Bitart/ 1 TAB Q4-6 PRN 04/18 1815 AC 04/20 Acetaminophen PO 1829 Lorazepam 1 MG AT BEDTIME PRN 04/18 1845 AC 04/19 PO 2024 Melatonin 5 MG AT BEDTIME 04/19 0400 AC 04/19 PO 2024 Mesalamine 1,200 MG TID 04/20 2100 AC PO Metronidazole 500 MG IQ8 04/19 0000 AC 04/20 N/A 1 UNIT IV 1647 Nicotine 21 MG DAILY 04/18 2041 AC 04/20 TOP 0651 Oxybutynin Chloride 5 MG BID PRN 04/18 181 AC 04/20 PO 0915 Sodium Chloride 1,000 ML Q13H 04/18 1830 AC 04/20 IV 1648 Tramadol HCl 50 MG DAILY 04/19 0900 AC 04/20 PO 0915 Last 24 Hrs of Lab/Nathan Results Last 24 Hrs of Labs/Mics: Laboratory Tests 04/20/18 0745: Anion Gap 5, Estimated GFR > 60, BUN/Creatinine Ratio 11.7, CBC w Diff NO MAN DIFF REQ, RBC 4.24 L, MCV 89.8, MCH 30.3, MCHC 33.7, RDW 14.1, MPV 8.4, Gran % 63.6, Lymphocytes % 21.3, Monocytes % 8.8, Eosinophils % 5.9 H, Basophils % 0.4 , Absolute Granulocytes 7.7 H, Absolute Lymphocytes 2.6, Absolute Monocytes 1.1 H, Absolute Eosinophils 0.7, Absolute Basophils 0 Assessment/Plan Assessment: Patient is a 52 YO middle aged male presented to ER with progressive diarrhea, nausea, abdominal pain after started on rituxin infusion first dose on apr 08 for Multiple sclerosis. Patient was on dapto/natalizumab infusions previously. Loose watery diarrhea without blood/mucus, diffuse abdominal pain, on and off fevers/chills. VS stable at presentation. Labs are significant for white count of 18, granulocytosis (mild), normal Cr. Lactic acid pending. CT abdomen and pelvis suggestive of pancolitis. Stool studies for C.diff and cultures, ova, parasites sent. Plan Admit to general medicine floor Dawson-colitis Likely secondary to rituximab * stool showed mixed javon and negative C. difficile and Shigella * IV metronidazole, ceftriaxone (mucosal seapage) * Low fiber diet * Gentle hydration, Bentyl for pain, if patient feels better can go home today H/o MS Patient was on dapto/natalizumab. 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 Started on rituximab and had colitis after first dose. Ideally rituximab is not a good choice for patient with AIMEE virus, however now it is not a option anymore given intolerance. * Hold rituximab * Continue pain medicaitons, started on baclofen for muscle spasm * Consider other options like mitoxantrone Urinary incontinence MS related * continue oxybutynin 5mg BID h/o NSTEMI continue Aspirin, Atorvastatin * Patient was unsure if on metoprolol, needs to be confirmed Depressed Patient is very depressed about his quality of life. Please consider psych evaluation. DVT prophylaxis SC heparin Code status DNR/DNI per patient -- needs to be readdressed Problem List: 1. Pancolitis Pain Ratin Pain Location: Back and muscles Pain Goal: Remain pain free Pain Plan: As discussed Tomorrow's Labs & Rationales: None Luis Angel Lundberg 04/20/18 1253: Attending MD Review Statement Attending Statement Attending MD Statement: examined this patient, discuss w/resident/PA/LOSS PREVENTION ASSOCIATE, agreed w/resident/PA/LOSS PREVENTION ASSOCIATE, discussed with family, reviewed EMR data (avail), discussed with nursing, discussed with case mgmt, reviewed images, amended to note Attending Assessment/Plan: Patient reported overnight loose stools but says I am feeling better. His stool work up is negative so far. GI consulted and recommendations followed. It does not appear he is in exacerbation. Patient can be dsicharged once his diarrhea improves and he can follow Dr Parker as outpatient for his MS treatment options.
[2018-04-20 09:56] LABS: HEMATOCRIT 38.1 % (42-52)
[2018-04-20] MEDS ORDERED: BISMATROL262 MG/15 PO (10:25)
[2018-04-20] MEDS ORDERED: Bentyl PO (10:25)
[2018-04-20] MEDS ORDERED: BACLOFEN10 M1 PO (10:26)
--- NOTE | 2018-04-20 10:45 | Patient Discharge Instructions ---
Discharge Instructions General Discharge Information You were seen/treated for: Gastritis Special Instructions: Please follow-up with primary care doctor after discharge a referral has been provided Please follow-up with if an outpatient psychiatry you have to call to make an appointment. Please return to ED if there is increase in number of bowel movements, if you notice blood in vomiting or stool. Activity Activity Self Limited: Yes Acute Coronary Syndrome Inclusion Criteria At DC or during hospital stay patient has or had the following: ACS DIAGNOSIS No Discharge Core Measures Meds if any: Prescribed or Continued at Discharge Meds if any: NOT Prescribed or Continued at Discharge Congestive Heart Failure Inclusion Criteria At DC or during hospital stay patient has or had the following: CHF DIAGNOSIS No Discharge Core Measures Meds if any: Prescribed or Continued at Discharge Meds if any: NOT Prescribed or Continued at Discharge Cerebrovascular accident Inclusion Criteria At DC or during hospital stay patient has or had the following: CVA/TIA Diagnosis No Discharge Core Measures Meds if any: Prescribed or Continued at Discharge Meds if any: NOT Prescribed or Continued at Discharge Venous thromboembolism Inclusion Criteria VTE Diagnosis No VTE Type NONE VTE Confirmed by (Test) NONE Discharge Core Measures - Per Current guidelines, there needs to be overlap - treatment for the first 5 days of Warfarin therapy. - If discharged on Warfarin prior to 5 days of - overlap therapy, the patient will need to be - assessed for post discharge needs including - *Post discharge parental anticoagulation - *Warfarin and/or parental anticoagulation education - *Follow up date to check INR post discharge At least 5 days overlap therapy as Inpatient No Meds if any: Prescribed or Continued at Discharge Note: Overlap Therapy is Warfarin and Anticoagulant Meds if any: NOT Prescribed or Continued at Discharge
[2018-04-20 14:27] VITALS: BP 132/71
--- NOTE | 2018-04-20 14:36 | PN- Gastroenterology ---
Assessment/Plan GI Assessment/Recommendations: Assessment/Recommendations: Acute colitis (abdominal pain, nonbloody diarrhea, leukocytosis), with continuing improvement in hospital after being placed on empiric antibiotics. Etiology is infectious versus chemotherapy-induced. Recommendations * Await final results of stool culture (negative after 2 day growth) * Please check sedimentation rate, C-reactive protein * Continue empiric broad coverage antibiotics * Begin mesalamine 4.8 g per day (give 1.2 g by mouth 3 times a day) * Continue dicyclomine * Continue to avoid narcotics, antidiarrheal agents * Continue bismuth subsalicylate 4 times a day * Low fiber diet; begin clear liquid diet at midnight, and make nothing by mouth at 10 AM. * Flexible sigmoidoscopy with biopsy is planned for tomorrow. Please order 1 tapwater enema "vocational director" to the procedure. Subjective Subjective: Stool still loose/diarrhea, although frequency diminished. Had some postprandial pain, but overall improved. No nausea or vomiting. No blood per rectum. Objective Vital Signs and I&Os Vital Signs Date Time Temp Pulse Resp B/P B/P Pulse O2 O2 Flow FiO2 Mean Ox Delivery Rate 04/20 1427 98.1 64 20 132/71 99 Room Air 04/20 0623 97.5 73 20 154/86 96 04/19 2156 98.2 66 20 124/84 100 Room Air Intake & Output 04/20 1600 04/20 0400 04/19 1600 04/19 0400 04/18 1600 04/18 0400 Intake Total 600 1080 1000 Output Total 650 100 Balance 600 430 -100 1000 Intake, IV 908 380 0481 Intake, Oral 480 0 Number 2 6 Bowel Movements Output, Urine 650 100 Patient 171 lb 167 lb 159 lb 180 lb Weight Weight Bed scale Bed scale Reported by Patient Measurement Method Physical Exam: Alert and oriented. Sclera anicteric. No adenopathy. Abdomen nondistended, soft, mild tenderness Results Pertinent Lab Results: Laboratory Tests 04/20 04/19 0745 0620 Chemistry Sodium (137 - 145 mmol/L) 136 L 138 Potassium (3.5 - 5.1 mmol/L) 4.0 4.0 Chloride (98 - 107 mmol/L) 106 100 Carbon Dioxide (22 - 30 mmol/L) 25 25 Anion Gap (5 - 16) 5 12 BUN (9 - 20 mg/dL) 7 L 7 L Creatinine (0.7 - 1.2 mg/dL) 0.6 L 0.6 L Estimated GFR (>60 ml/min) > 60 > 60 BUN/Creatinine Ratio (7 - 25 %) 11.7 11.7 Hematology CBC w Diff NO MAN DIFF REQ NO MAN DIFF REQ WBC (4.8 - 10.8 /CUMM) 12.1 H 15.9 H RBC (4.70 - 6.10 /CUMM) 4.24 L 4.84 Hgb (14.0 - 18.0 G/DL) 12.8 L 14.8 Hct (42 - 52 %) 38.1 L 43.2 MCV (80.0 - 94.0 FL) 89.8 89.2 MCH (27.0 - 31.0 PG) 30.3 30.6 MCHC (33.0 - 37.0 G/DL) 33.7 34.3 RDW (11.5 - 14.5 %) 14.1 14.1 Plt Count (130 - 400 /CUMM) 308 316 MPV (7.4 - 10.4 FL) 8.4 8.4 Gran % (42.2 - 75.2 %) 63.6 73.9 Lymphocytes % (20.5 - 51.1 %) 21.3 15.3 L Monocytes % (1.7 - 9.3 %) 8.8 9.0 Eosinophils % (0 - 5 %) 5.9 H 1.4 Basophils % (0.0 - 2.0 %) 0.4 0.4 Absolute Granulocytes (1.4 - 6.5 /CUMM) 7.7 H 11.8 H Absolute Lymphocytes (1.2 - 3.4 /CUMM) 2.6 2.4 Absolute Monocytes (0.10 - 0.60 /CUMM) 1.1 H 1.4 H Absolute Eosinophils (0.0 - 0.7 /CUMM) 0.7 0.2 Absolute Basophils (0.0 - 0.2 /CUMM) 0 0.1 04/18 04/18 2200 1015 Chemistry Sodium (137 - 145 mmol/L) 137 Potassium (3.5 - 5.1 mmol/L) 3.8 Chloride (98 - 107 mmol/L) 96 L Carbon Dioxide (22 - 30 mmol/L) 29 Anion Gap (5 - 16) 13 BUN (9 - 20 mg/dL) 12 Creatinine (0.7 - 1.2 mg/dL) 0.7 Estimated GFR (>60 ml/min) > 60 BUN/Creatinine Ratio (7 - 25 %) 17.1 Glucose (65 - 99 mg/dL) 112 H Lactic Acid (0.7 - 2.1 mmol/L) 1.8 Calcium (8.4 - 10.2 mg/dL) 9.7 Total Bilirubin (0.2 - 1.3 mg/dL) 0.4 AST (17 - 59 U/L) 33 ALT (21 - 72 U/L) 27 Alkaline Phosphatase (< 127 U/L) 107 Total Protein (6.3 - 8.2 g/dL) 7.2 Albumin (3.5 - 5.0 g/dL) 4.6 Globulin (1.9 - 4.2 gm/dL) 2.6 Albumin/Globulin Ratio (1.1 - 2.2 %) 1.8 Lipase (23 - 300 U/L) 33 Hematology CBC w Diff MAN DIFF ORDERED WBC (4.8 - 10.8 /CUMM) 18.0 H RBC (4.70 - 6.10 /CUMM) 5.52 Hgb (14.0 - 18.0 G/DL) 16.7 Hct (42 - 52 %) 49.4 MCV (80.0 - 94.0 FL) 89.5 MCH (27.0 - 31.0 PG) 30.2 MCHC (33.0 - 37.0 G/DL) 33.7 RDW (11.5 - 14.5 %) 13.8 Plt Count (130 - 400 /CUMM) 363 MPV (7.4 - 10.4 FL) 7.8 Gran % (42.2 - 75.2 %) 71.4 Lymphocytes % (20.5 - 51.1 %) 17.5 L Monocytes % (1.7 - 9.3 %) 9.4 H Eosinophils % (0 - 5 %) 1.4 Basophils % (0.0 - 2.0 %) 0.3 Absolute Granulocytes (1.4 - 6.5 /CUMM) 12.9 H Absolute Lymphocytes (1.2 - 3.4 /CUMM) 3.2 Absolute Monocytes (0.10 - 0.60 /CUMM) 1.7 H Absolute Eosinophils (0.0 - 0.7 /CUMM) 0.3 Absolute Basophils (0.0 - 0.2 /CUMM) 0 Platelet Estimate (ADEQUATE) ADEQUATE Normocytic RBCs VERIFIED Normochromic RBCs VERIFIED Urines Urine Color (YEL,AMB,STR) YEL Urine Clarity (CLEAR) CLEAR Urine pH (5.0 - 8.0) 6.0 Ur Specific [place] (1.001 - 1.035) 1.020 Urine Protein (NEG,<30 MG/DL) NEG Urine Ketones (NEG) 40 H Urine Nitrite (NEG) NEG Urine Bilirubin (NEG) NEG Urine Urobilinogen (0.1 - 1.0 EU/dl) 0.2 Ur Leukocyte Esterase (NEG) NEG Ur Microscopic EXAM NOT REQUIRED Urine Hemoglobin (NEG) NEG Urine Glucose (N MG/DL) NEG
[2018-04-20 22:48] VITALS: BP 144/74
[2018-04-21 06:56] VITALS: BP 127/75
--- NOTE | 2018-04-21 07:14 | PN- Housestaff ---
Dawson Brennan 04/21/18 0713: Subjective Follow-up For: Pancolitis Multiple Sclerosis Urinary Incontinence Subjective: Pt seen and examiend this morning. He denies significant abdominal pain but has had a few loose stools, non-bloody overnight. Patient with significant back spasms that is being treated with baclofen. Afebrile with normal vital signs. Denies any fevers, chills, nausea, vomiting. Will be NPO for afternoon given possible flexible sigmoidoscopy/biopsy as per GI. Review of Systems Constitutional: Denies: see HPI. Objective Last 24 Hrs of Vital Signs/I&O Vital Signs Date Time Temp Pulse Resp B/P B/P Pulse O2 O2 Flow FiO2 Mean Ox Delivery Rate 04/21 0656 97.6 62 20 127/75 98 Room Air 04/20 2248 98.2 72 18 144/74 100 Room Air 04/20 1427 98.1 64 20 132/71 99 Room Air Intake & Output 04/21 1600 04/21 0800 04/21 0000 Intake Total 1080 1080 Output Total 1400 400 Balance -320 680 Intake, IV 600 600 Intake, Oral 480 480 Number 2 2 Bowel Movements Output, Urine 1400 400 Patient 165 lb Weight Physical Exam General Appearance: Alert, Oriented X3, Cooperative, No Acute Distress Skin: No Rashes HEENT: Mucous Membr. moist/pink Cardiovascular: Normal S1, Normal S2 Lungs: Clear to Auscultation, Normal Air Movement Abdomen: mild tenderness to palpation diffusely in abdomen; normal bowelsounds; no signficant masses appreciated Neurological: decreased strength in bialteral lower extremities; sensation intact; Normal speech; gait unassessed Extremities: No Cyanosis, No Edema Vascular: Normal Pulses Current Medications: Current Medications Sig/Bina Start time Last Medication Dose Route Stop Time Status Admin Acetaminophen 650 MG Q6P PRN 04/180 AC PO Acetaminophen 1,000 MG Q6P PRN 04/18 213 AC 04/20 IV 0502 Aspirin 81 MG DAILY 04/19 09 AC 04/21 PO 0806 Atorvastatin Calcium 80 MG 1700 04/19 1700 AC 04/20 PO 1648 Baclofen 5 MG AT BEDTIME 04/19 2100 AC 04/20 PO 2223 Baclofen 10 MG TID PRN 04/19 09 AC 04/20 PO 1425 Bismuth Subsalicylate 30 ML PCHS 04/19 2100 AC 04/21 PO 0806 Ceftriaxone Sodium 1,000 MG 1600 04/19 1600 AC 04/20 IV 1648 Cholecalciferol 1,000 IU DAILY 04/19 0900 AC 04/21 PO 0805 Dicyclomine HCl 20 MG 4 TIMES/DAY PRN 04/19 1900 AC 04/21 PO 0003 Heparin Sodium 5,000 UNIT Q8 04/18 1743 AC 04/21 (Porcine) SC 0601 Hydrocodone Bitart/ 1 TAB Q4-6 PRN 04/18 1815 AC 04/21 Acetaminophen PO 1042 Lorazepam 1 MG AT BEDTIME PRN 04/18 1845 AC 04/20 PO 2237 Melatonin 5 MG AT BEDTIME 04/19 0400 AC 04/20 PO 2222 Mesalamine 1,200 MG TID 04/20 2100 AC 04/21 PO 0805 Metronidazole 500 MG IQ8 04/19 0000 AC 04/21 N/A 1 UNIT IV 0805 Nicotine 21 MG DAILY 04/18 2041 AC 04/21 TOP 0805 Oxybutynin Chloride 5 MG BID PRN 04/18 1815 AC 04/21 PO 0805 Sodium Chloride 1,000 ML Q13H 04/18 1830 AC 04/21 IV 0805 Tramadol HCl 50 MG DAILY 04/19 09 AC 04/21 PO 0811 Last 24 Hrs of Lab/Nathan Results Last 24 Hrs of Labs/Mics: Laboratory Tests 04/21/18 0610: Anion Gap 7, Estimated GFR > 60, BUN/Creatinine Ratio 11.7, C-React Prot High Sens 5.5 H, CBC w Diff NO MAN DIFF REQ, RBC 4.18 L, MCV 90.1, MCH 30.7, MCHC 34.1, RDW 13.6, MPV 8.7, Gran % 61.2, Lymphocytes % 22.9, Monocytes % 7.4, Eosinophils % 8.1 H, Basophils % 0.4, Absolute Granulocytes 7.7 H, Absolute Lymphocytes 2.9, Absolute Monocytes 0.9 H, Absolute Eosinophils 1.0, Absolute Basophils 0, ESR Westergren 10 Assessment/Plan Assessment: Patient is a 52 year old male presented to ER with progressive diarrhea, nausea, abdominal pain after started on rituxin infusion first dose on apr 08 for Multiple sclerosis. Patient was on dapto/natalizumab infusions previously with a positive AIMEE virus. Loose watery diarrhea without blood/mucus, diffuse abdominal pain, on and off fevers/chills. VS stable at presentation. Labs are significant for white count of 18, granulocytosis (mild), normal Cr. CT abdomen and pelvis suggestive of pancolitis. Stool studies for C.diff and cultures negative. CT Abdomen: Markedly abnormal colon with thickening and edema throughout. Findings consistent with koo colitis. Ulcerative colitis would be the differential along with other etiologies. 04/21: NPO for flex sig/biopsy as per GI today. Psychiatry consulted for evaluation of depression regarding patients quality of life. PROBLEM LIST: 1. Pancolitis 2. Multiple Sclerosis 3. Urinary Incontinence 4. NSTEMI History 5. Depression Pancolitis Recent course of Rituxin for Multiple Sclerosis with onset of abdominal pain and episodes of loose watery diarrhea. CRP is 5.5 and ESR is 10. White count trending down to 12.7 from 18.0 on admission and patient has been afebrile. GI on board. * Negative C -Diff + Shigella; mixed javon in stool * Day 3 IV Metronodizole + Ceftriaxone * Mesalamine 4.8 g per day (give 1.2 g by mouth 3 times a day) * Continue dicyclomine, bismuth subsalicylate 4 times daily * NPO today as per GI * Flexible sigmoidoscopy with biopsy is planned for 04/21/18. Night team ordered 1 tapwater enema "automotive internet sales consultant" to the procedure. * CRP: 5.5, ESR: 10 History of Multiple Sclerosis Patient was on dapto/natalizumab. 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 Started on rituximab and had colitis after first dose. Ideally rituximab is not a good choice for patient with AIMEE virus, however now it is not a option anymore given intolerance. * Rituximab held * Pain Control: Baclofen for muscle spasms, Vicodin, Tramadol Urinary Inctoninence Related to patients MS * Continue oxybutinin 5mg BID History of NSTEMI * Continue aspirin and atorvastatin Depression Concern about depression to admitting team as patient admitted he was depressed about the quality of his life. Patient had to be readressed regarding his code status given he origianlly claimed DNR/DNI. * Psychiatry Evaluation Consulted Code Status: Full code DVT PPx: Heparin SC Diet: NPO after 10am today for possible flexible sigmoidoscopy/biopsy Problem List: 1. NSTEMI (non-ST elevated myocardial infarction) 2. Pancolitis Pain Ratin Pain Location: back spasms in lower back mild abdominal pain Pain Goal: Pain 4 or less Pain Plan: as per pain pathway Tomorrow's Labs & Rationales: cbc bep Daniel DANG,Anubj 04/21/18 1407: Attending MD Review Statement Attending Statement Attending MD Statement: examined this patient, discuss w/resident/PA/LIMNOLOGIST, agreed w/resident/PA/LIMNOLOGIST, reviewed EMR data (avail), discussed with nursing, discussed with case mgmt, amended to note Attending Assessment/Plan: Patient seen and examined. Lying comfortably in bed. Not in any acute distress. Reports feeling better compared to presentation. Denies nausea vomiting. Denies abdominal pain or cramping. Reports her diarrhea is resolving. Scheduled to undergo flexible sigmoidoscopy today. We will follow- up results. If he remains clinically stable overnight, he may be discharged home tomorrow. We will continue empirically on IV antibiotics and continue to monitor for improvement of his leukocytosis.
[2018-04-21 08:37] LABS: ABSOLUTE BASOPHIL COUNT 0 /CUMM (0.0-0.2); ABSOLUTE GRANULOCYTE CT 7.7 /CUMM (1.4-6.5); ABSOLUTE LYMPH COUNT 2.9 /CUMM (1.2-3.4); ABSOLUTE MONOCYTE COUNT 0.9 /CUMM (0.10-0.60); BASOPHIL % 0.4 % (0.0-2.0); EOSINOPHIL % 8.1 % (0-5); GRANULOCYTE % 61.2 % (42.2-75.2); HEMATOCRIT 37.6 % (42-52); MEAN CORPUSCULAR HGB 30.7 PG (27.0-31.0); MEAN CORPUSCULAR HGB CONC 34.1 G/DL (33.0-37.0); MEAN CORPUSCULAR VOLUME 90.1 FL (80.0-94.0); MEAN PLATELET VOLUME 8.7 FL (7.4-10.4); PLATELET COUNT 310 /CUMM (130-400); RBC DISTRIBUTION WIDTH 13.6 % (11.5-14.5); RED BLOOD CELL CT 4.18 /CUMM (4.70-6.10); WHITE BLOOD CELL COUNT 12.7 /CUMM (4.8-10.8)
--- NOTE | 2018-04-21 13:24 | Cons- Psychiatry ---
Psychiatric Consult Date of Consult: 04/21/18 Reason for Consult: Assessment depression History of Present Illness: This 52-year-old male was admitted on April 18 with a one-week history of abdominal pain, diarrhea and nausea. His symptoms became worse following a medication change on April 08. During his admission the patient has requested DNR/DNI order. Today the patient states "I have had enough, everything is so hard". Patient was diagnosed with progressive MS in 2005. He states that he has had 2 recent hospitalizations with adverse effects to medication. His level of functioning has reduced progressively. He is able to drive but struggles to walk. He reports "every day is a struggle". The patient reports that his sleep is normal, sleeping 8 hours a night when at home. Appetite is poor. Concentration is normal. He is irritable, lacks energy and is unable to enjoy anything. He has lost interest in usual activities. He denies wanting to but states "if it happens it happens". He is adamant that he would never take his own life. Primary protective factor is his daughter. There are no psychotic symptoms. Past psychiatric history: The patient was prescribed an antidepressant by his neurologist when he was first diagnosed but says it was ineffective. He cannot recall what it was. He has no other psychiatric history. There is no history of deliberate self-harm or suicide attempts. Substanve abuse history: The patient uses medical marijuana. He denies any substance abuse history. Family psychiatric history: Denies any family history of mental illness or substance abuse. Social/personal history: The patient lives with a roommate. He was for over 20 years but says that his marriage broke up as his function tests improved. He has 3 children age 15, 21 and 26. 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 His father is . His mother is alive but he says he does not like to bother her. He also has 3 brothers but sees only 1 of them. He attends an MS yoga support group twice weekly. He tries to attend his daughter's softball games but has been struggling with this due to the humidity. Allergies: Coded Allergies: methylprednisolone (From SOLU-MEDROL) (CHEST TIGHTNESS 03/26/17) Current Medications: Med Acetaminophen 650 MG PO Q6P PRN 04/18/18 2130 Acetaminophen 1,000 MG IV Q6P PRN 04/18/18 2130 Hydrocodone Bitart/Acetaminophen 1 TAB PO Q4-6 PRN 04/18/18 1815 Aspirin 81 MG PO DAILY 04/19/18 0900 Atorvastatin Calcium 80 MG PO 1700 04/19/18 1700 Baclofen 10 MG PO TID PRN 04/19/18 0900 Baclofen 5 MG PO AT BEDTIME 04/19/18 2100 Bismuth Subsalicylate 30 ML PO PCHS 04/19/18 2100 Ceftriaxone Sodium 1,000 MG IV 1600 04/19/18 1600 Cholecalciferol 1,000 IU PO DAILY 04/19/18 0900 Dicyclomine HCl 20 MG PO 4 TIMES/DAY PRN 04/19/18 1900 Heparin Sodium (Porcine) 5,000 UNIT SC Q8 04/18/18 1743 Lorazepam 1 MG PO AT BEDTIME PRN 04/18/18 1845 Melatonin 5 MG PO AT BEDTIME 04/19/18 0400 Mesalamine 1,200 MG PO TID 04/20/18 2100 Metronidazole 500 MG IV IQ8 04/19/18 0000 N/A 1 UNIT Nicotine 21 MG TOP DAILY 04/18/18 2041 Oxybutynin Chloride 5 MG PO BID PRN 04/18/18 1815 Sodium Chloride 1,000 ML IV Q13H 04/18/18 1830 Tramadol HCl 50 MG PO DAILY 04/19/18 0900 Past History Past Medical History Neurological: multiple sclerosis EENT: NONE Cardiovascular: myocardial infarction Respiratory: NONE Gastrointestinal: NONE Hepatic: NONE Renal: NONE Musculoskeletal: NONE Psychiatric: NONE Endocrine: NONE Blood Disorders: NONE Cancer(s): NONE Past Surgical History Surgical History: laminectomy, COLONOSCOPY - SEP 2016 multiple lumbar back surgeries Substance Abuse Treatment Comments: See HPI Assessment/Plan Mental Status Orientation: Person, Place, Situation Mental Status Exam: The patient is a thin, 52-year-old male with closely shaped tear seen in his hospital bed. He was encountered watching TV in a dark room. He was alert and oriented 3. Gait was not tested. Eye contact was fair. Speech was normal in rate, rhythm, volume and tone. His mood is depressed, his affect was sad and angry. He was not suicidal but admitted that he would possibly accept were to happen. Thought process was normal in tempo, stream and form. There were no delusions or obsessions. Thought content was negative. Attention and concentration were good. There was no perceptual abnormality. Impulse control was good. The patient's intelligence level is average, fund of knowledge average, use of language appropriate. Recent and remote memory are grossly intact. Patient's insight is fair, judgment unimpaired. Diffential Diagnosis: -Major depressive disorder moderate without psychosis -Rule out depressive disorder secondary to general medical condition Provisional Treatment Plan: -Start Cymbalta tomorrow at 20 mg daily to assess tolerability. Titrate dose up to therapeutic dose of approximately 60 mg daily. -Patient declines referral for psychotherapy. We will continue to encourage. -Suggest checking TSH R. TSH was low in 2017 and may be contributing to his depression. Psychiatry will continue to follow. Thank you for consulting us on this patient.
[2018-04-21 14:30] VITALS: BP 142/79
--- NOTE | 2018-04-21 15:42 | Proc Note Gastroenterology ---
Gastroenterology Procedure Procedure Date: 04/21/18 GI Procedure(s): Flexible sigmoidoscopy with biopsy Architectural Designer: Abdi Calero M.D. ASA Classification: III Indications: Colitis/diarrhea in a patient who received a single cycle of rituximab Meds Received: MAC Patient's Tolerance: good Complications: None Extent Reached: 55 cm Procedure: The patient signed informed consent, was placed in the Jacobs position, and medicated. Examination of the rectum was normal. There were no anal or perianal lesions. The Olympus high-definition variable stiffness colonoscope was inserted through the anus and advanced to the area of the splenic flexure, at 55 cm. The colon was unprepped, but was washed to expose the mucosa. Findings: The rectal mucosa and vasculature were normal. The mucosa of the sigmoid and descending colon had patchy edema, but no erythema, granularity, friability, exudate or erosion/ulceration. Biopsies were obtained from rectum, 20 cm, 30 cm and 45 cm (and sent for histopathology, including CMV). Impression: * Mild colitis Recommendations: * Await pathology * Regular/low fiber diet tonight, and if tolerated consideration for discharge tomorrow * Complete empiric course of antibiotics, with oral Cipro and Flagyl for 5 days * Continue mesalamine * Continue dicyclomine as needed * Follow-up with Dr. Ayala in the outpatient setting. CC: Keith DANG,Ryan Marshall; Jamie DANG,Bill
[2018-04-21 21:41] VITALS: BP 132/72
[2018-04-22 06:09] VITALS: BP 140/70
--- NOTE | 2018-04-22 06:26 | PN- Housestaff ---
Dawson Brennan 04/22/18 0626: Subjective Follow-up For: Colitis Multiple Sclerosis Subjective: Pt seen and examined at bedside this morning. He has had one loose stool overnight and is tolerating his lower fiber diet. Patient denies abodminal pain, nausea, vomiting, fevers or chills. He was advised to follow up outpatient with GI for his pathology report status post flex sig/biopsy 04/21/18. Review of Systems Constitutional: Denies: see HPI. Objective Last 24 Hrs of Vital Signs/I&O Vital Signs Date Time Temp Pulse Resp B/P B/P Pulse O2 O2 Flow FiO2 Mean Ox Delivery Rate 04/22 0609 97.9 73 18 140/70 98 04/21 2141 98.2 71 18 132/72 100 Room Air 04/21 1430 97.4 59 20 142/79 100 Room Air Intake & Output 04/22 1600 04/22 0800 04/22 0000 Intake Total 720 420 Output Total 750 300 650 Balance -750 420 -230 Intake, IV 600 300 Intake, Oral 120 120 Number 1 Bowel Movements Output, Urine 750 300 650 Patient 175 lb Weight Physical Exam General Appearance: Alert, Oriented X3, Cooperative, Mild Distress Skin: No Rashes Skin Temp/Moisture Exam: Warm/Dry HEENT: Mucous Membr. moist/pink Cardiovascular: Normal S1, Normal S2 Lungs: Clear to Auscultation, Normal Air Movement Abdomen: Soft, No Tenderness Neurological: decreased strength in lower extremities 4/5 Extremities: No Edema Vascular: Normal Pulses Current Medications: Current Medications Sig/Bina Start time Last Medication Dose Route Stop Time Status Admin Acetaminophen 650 MG Q6P PRN 04/180 AC PO Acetaminophen 1,000 MG Q6P PRN 04/18 2130 AC 04/20 IV 0502 Aspirin 81 MG DAILY 04/19 09 AC 04/22 PO 0853 Atorvastatin Calcium 80 MG 1700 04/19 1700 AC 04/21 PO 1644 Baclofen 5 MG AT BEDTIME 04/19 2100 AC 04/21 PO 2117 Baclofen 10 MG TID PRN 04/19 09 AC 04/22 PO 0002 Bismuth Subsalicylate 30 ML PCHS 04/19 2100 AC 04/22 PO 0854 Ceftriaxone Sodium 1,000 MG 1600 04/19 1600 DC 04/21 IV 1644 Chlorhexidine 0 .STK-MED ONE 04/21 1553 DC Gluconate TOP Cholecalciferol 1,000 IU DAILY 04/19 0900 AC 04/22 PO 0853 Ciprofloxacin 500 MG BID 04/22 0953 AC PO 04/26 0952 Dicyclomine HCl 20 MG 4 TIMES/DAY PRN 04/19 1900 AC 04/21 PO 0003 Duloxetine HCl 20 MG DAILY 04/22 0959 AC PO Heparin Sodium 5,000 UNIT Q8 04/18 1743 AC 04/22 (Porcine) SC 0515 Hydrocodone Bitart/ 1 TAB Q4-6 PRN 04/18 1815 AC 04/22 Acetaminophen PO 0914 Lorazepam 1 MG AT BEDTIME PRN 04/18 1845 AC 04/21 PO 2123 Melatonin 5 MG AT BEDTIME 04/19 0400 AC 04/21 PO 2119 Mesalamine 1,200 MG TID 04/20 2100 AC 04/22 PO 0853 Metronidazole 250 MG Q8 04/22 0953 AC PO Metronidazole 500 MG IQ8 04/19 0000 DC 04/22 N/A 1 UNIT IV 0853 Nicotine 21 MG DAILY 04/18 2041 AC 04/22 TOP 0853 Oxybutynin Chloride 5 MG BID PRN 04/18 1815 AC 04/21 PO 0805 Patient Medication 1 ED ONE ONE 04/21 1330 DC 04/21 Teaching ED 04/21 1331 2132 Sodium Chloride 1,000 ML Q13H 04/18 1830 AC 04/21 IV 2356 Tramadol HCl 50 MG DAILY 04/19 0900 AC 04/22 PO 0853 Last 24 Hrs of Lab/Nathan Results Last 24 Hrs of Labs/Mics: Laboratory Tests 04/22/18 0835: Sodium Pending, Potassium Pending, Chloride Pending, Carbon Dioxide Pending, Anion Gap Pending, BUN Pending, Creatinine Pending, BUN/Creatinine Ratio Pending , Vitamin B12 Pending, 25-OH Vitamin D Total Pending, TSH Pending, CBC w Diff Pending, WBC Pending, RBC Pending, Hgb Pending, Hct Pending, MCV Pending, MCH Pending, MCHC Pending, RDW Pending, Plt Count Pending, MPV Pending Assessment/Plan Assessment: Patient is a 52 year old male presented to ER with progressive diarrhea, nausea, abdominal pain after started on rituxin infusion first dose on apr 08 for Multiple sclerosis. Patient was on dapto/natalizumab infusions previously with a positive AIMEE virus. Loose watery diarrhea without blood/mucus, diffuse abdominal pain, on and off fevers/chills. VS stable at presentation. Labs are significant for white count of 18, granulocytosis (mild), normal Cr. CT abdomen and pelvis suggestive of pancolitis. Stool studies for C.diff and cultures negative. CT Abdomen: Markedly abnormal colon with thickening and edema throughout. Findings consistent with koo colitis. Ulcerative colitis would be the differential along with other etiologies. 04/22: Afebrile, normal vital signs. One loose stool overnight. Stable for discharge today. Advised for close GI follow up for pathology reports regarding flex sig/biopsy. PROBLEM LIST: 1. Pancolitis 2. Multiple Sclerosis 3. Urinary Incontinence 4. NSTEMI History 5. Depression Pancolitis Recent course of Rituxin for Multiple Sclerosis with onset of abdominal pain and episodes of loose watery diarrhea. CRP is 5.5 and ESR is 10. Flex sig/biopsy done on 04/21/18. Pathology report to follow. * Appreciate GI consult * Negative C -Diff + Shigella; mixed javon in stool * Day 4 IV Metronodizole + Ceftriaxone - will be discharged on proper oral dose * Mesalamine 4.8 g per day (give 1.2 g by mouth 3 times a day) * Continue dicyclomine, bismuth subsalicylate 4 times daily * CRP: 5.5, ESR: 10 * Close follow up outpatient with GI History of Multiple Sclerosis Patient was on dapto/natalizumab. 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 Started on rituximab and had colitis after first dose. Ideally rituximab is not a good choice for patient with AIMEE virus, however now it is not a option anymore given intolerance. * Rituximab held - follow up with MS specialist for further instruction * Pain Control: Baclofen for muscle spasms, Vicodin, Tramadol; advised to follow up outpatient with pain management and to use baclofen as needed Urinary Inctoninence Related to patients MS * Continue oxybutinin 5mg BID History of NSTEMI * Continue aspirin and atorvastatin Depression Concern about depression to admitting team as patient admitted he was depressed about the quality of his life. Patient had to be readressed regarding his code status given he origianlly claimed DNR/DNI. * Psychiatry Evaluation Consulted - recommends cymbalta on discharge - will give patient referral and prescription Code Status: Full code DVT PPx: Heparin SC Diet:Low Fiber Diet Problem List: 1. Pancolitis Pain Ratin Pain Location: abdominal/back Pain Goal: Pain 4 or less Pain Plan: as per pain pathway Tomorrow's Labs & Rationales: discharge today Daniel DANGRachel 04/22/18 1007: Attending MD Review Statement Attending Statement Attending MD Statement: examined this patient, discuss w/resident/PA/TERMINAL CARMAN, agreed w/resident/PA/TERMINAL CARMAN, reviewed EMR data (avail), discussed with nursing, discussed with case mgmt, amended to note Attending Assessment/Plan: Patient seen and examined. Resting comfortably not in any acute distress. Flex sigmoidoscopy done yesterday showed mild colitis. Pathology is pending. He remains afebrile. He remains hemodynamically stable. Denies nausea vomiting. Denies abdominal cramping. Stools are well formed. Tolerating diet. He is medically stable to be discharged today. He is to follow-up with the gastroenterology service next week for the results of pathology findings. We have advised that he should hold off resuming rituximab until he follows up with the GI service regarding the pathology results.
[2018-04-22] MEDS ORDERED: FLAGYL250 M1 PO ×2 (09:57→10:16)
[2018-04-22] MEDS ORDERED: CIPRO500 M1 PO ×2 (09:57→10:16)
[2018-04-22] MEDS ORDERED: CYMBALTA20 M1 PO ×2 (10:00→10:16)
[2018-04-22] MEDS ORDERED: BACLOFEN10 M1 PO (10:16)
[2018-04-22] MEDS ORDERED: BISMATROL262 MG/15 PO (10:16)
[2018-04-22] MEDS ORDERED: Bentyl PO ×3 (10:16→11:29)
[2018-04-22 10:51] LABS: ABSOLUTE BASOPHIL COUNT 0 /CUMM (0.0-0.2); ABSOLUTE EOSINOPHIL COUNT 0.9 /CUMM (0.0-0.7); ABSOLUTE GRANULOCYTE CT 6.4 /CUMM (1.4-6.5); ABSOLUTE LYMPH COUNT 2.3 /CUMM (1.2-3.4); ABSOLUTE MONOCYTE COUNT 0.9 /CUMM (0.10-0.60); BASOPHIL % 0.3 % (0.0-2.0); EOSINOPHIL % 8.3 % (0-5); GRANULOCYTE % 61.2 % (42.2-75.2); MEAN CORPUSCULAR HGB 30.7 PG (27.0-31.0); MEAN CORPUSCULAR VOLUME 90.1 FL (80.0-94.0); MEAN PLATELET VOLUME 8.5 FL (7.4-10.4); PLATELET COUNT 347 /CUMM (130-400); RBC DISTRIBUTION WIDTH 13.9 % (11.5-14.5); RED BLOOD CELL CT 4.33 /CUMM (4.70-6.10); WHITE BLOOD CELL COUNT 10.4 /CUMM (4.8-10.8)
--- NOTE | 2018-04-22 11:15 | PN- Psychiatry ---
Assessment/Plan Impression: Medically cleared for discharge. Remains depressed, not suicidal. Less angry today. Not tearful. Eye contact improved. Speech normal rate, rhythm, volume and tone. No psychosis. Attention and concentration good. Impulse control good. Insight fair. Judgement unimpaired. Agreeable to outpatient follow-up though requests he make the appointment himself so that he can combine it with another appointment. Tolerated duloxetine and is willing to continue it. Suggestion: - Increase duloxetine to 40 mg po daily - Pt to call [phone] to make an appojntment at [facility] Subjective Subjective: "I will just keep fighting". Objective Last 24 Hrs of Vital Signs/I&O Vital Signs Date Time Temp Pulse Resp B/P B/P Pulse O2 O2 Flow FiO2 Mean Ox Delivery Rate 04/22 0609 97.9 73 18 140/70 98 04/21 2141 98.2 71 18 132/72 100 Room Air 04/21 1430 97.4 59 20 142/79 100 Room Air Intake & Output 04/22 1600 04/22 0800 04/22 0000 Intake Total 720 420 Output Total 750 300 650 Balance -750 420 -230 Intake, IV 600 300 Intake, Oral 120 120 Number 1 Bowel Movements Output, Urine 750 300 650 Patient 79.549 kg Weight
--- NOTE | 2018-04-22 13:51 | Discharge Summary ---
Visit Information Visit Dates Admission Date: 04/18/18 Discharge Date: 04/22/18 Hospital Course Course Attending Physician: Rachel Sanchez MD Primary Care Physician: Patient Has No Primary Care Dr Hospital Course: HOSPITAL COURSE: Patient is a 52 year old male with PMH signficant for MS diagnosed 2005, urinary incontinence, NSTEMI, medical marijuana presented to [facility] with progressive diarrhea, nausea, abdominal pain for the past week. Pateint was started on Rituximab on Apr 08 with discontinuation of dapto/natalizumab ( as AIMEE virus positive) after which his symptoms started to get worse. He reports loose watery stools without any blood/mucus upto 10 per day. He did report fevers on and off, never checked, abdominal pain diffuse not specifically related to bowel movement. Significantly impaired appetite. Multiple Sclerosis was diagnosed 2005 was on dapto/natalizumab monthly infusions. Urinary incontinence and lower extermity weakness secondary to it impairs ADLs although able to perform, uses rollator to walk. Lives alone with roomate. Spoke of being depressed secondary to disease. CT ABDOMEN/PELVIS: IMPRESSION: Markedly abnormal colon with thickening and edema throughout. Findings consistent with koo colitis. Ulcerative colitis would be the differential along with other etiologies. GENERAL MEDICINE: PROBLEM LIST: 1. Colitis 2. History of Multiple Sclerosis 3. Depression expressed on admission 4. History of NSTEMI 5. Urinary Incontinence COLITIS -Possibility due to Rituximab versus infectious vs inflammatory causes. He did have leukocytosis might be reactive. Stool for C.diff, culture, ova and parasites were negative. IV metronidazole, ceftriaxone started for patient. Patient started on full liquid diet with gentle hydration. GI was consulted. Patient was scheduled a flex sig and biopsy. Anticholinergic medication such as dicyclomine or hyoscyamine for pain as needed. Avoided narcotics, antidiarrheal agents due to possible infectious colitis. Bismuth subsalicylate 4 times a day. Begin mesalamine 4.8 g per day (give 1.2 g by mouth 3 times a day). Flex sig/ biopsy done on 04/21/18. Pathology report to follow. CRP: 5.5, ESR: 10. Close follow up outpatient with GI. H/O OF MULTIPLE SCLEROSIS -Patient was on dapto/natalizumab. 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 Started on rituximab and had colitis after first dose. Ideally rituximab is not a good choice for patient with AIMEE virus, however now it is not a option anymore given intolerance. Rituximab held - follow up with MS specialist for further instruction Pain Control: Baclofen for muscle spasms, Vicodin, Tramadol; advised to follow up outpatient with pain management and to use baclofen as needed . Urinary Inctoninence Related to patients MS. Continue oxybutinin 5mg BID History of NSTEMI Continue aspirin and atorvastatin Depression Concern about depression to admitting team as patient admitted he was depressed about the quality of his life. Patient had to be readressed regarding his code status given he origianlly claimed DNR/DNI. Psychiatry Evaluation Consulted - recommends cymbalta on discharge -Gave patient referral and prescription. Code: Full Code DVT PPx Allergies: Coded Allergies: methylprednisolone (From SOLU-MEDROL) (CHEST TIGHTNESS 03/26/17) Disposition Summary Disposition Principal Diagnosis: Colitis Additional Diagnosis: H/O Multiple Sclerosis Discharge Disposition: home or self care Discharge Instructions General Discharge Information Code Status: Full Code Patient's Diet: As tolerated Patient's Activity: as tolerated with assistance Follow-Up Instructions/Appts: Please follow-up with primary care doctor after discharge a referral has been provided. Please follow-up with if an outpatient psychiatry you have to call to make an appointment. Please return to ED if there is increase in number of bowel movements, if you notice blood in vomiting or stool. Medications at Discharge Discharge Medications: Continue taking these medications: Hydrocodone/Acetaminophen (Hydrocodon-Acetaminophn 10-325) 10 MG-325 MG TABLET 1 Tablet ORAL 4 times daily as needed as needed for PAIN Qty = 120 Comments: Last Taken: 04/22/18 Time: 0915am Tramadol HCl (Tramadol HCl) 50 MG TABLET 1 Tablet ORAL As Directed as needed for PAIN Qty = 120 Comments: Last Taken: 04/22/18 Time: 9am Lorazepam (Lorazepam) 0.5 MG TABLET 1-2 Tablet ORAL Every night as needed for SLEEP Qty = 60 Comments: Last Taken: 04/22/18 Time: 2100pm Oxybutynin Chloride (Oxybutynin Chloride) 5 MG TABLET 1 Tablet ORAL TWICE DAILY as needed for BLADDER Qty = 60 Comments: NOT GIVEN IN HOSPITAL Cholecalciferol (Vitamin D3) (Vitamin D) 10,000 UNIT CAPSULE 2 Capsule ORAL DAILY Comments: Last Taken: 04/22/18 Time: 9am Atorvastatin Calcium (Atorvastatin Calcium) 80 MG TABLET 80 Milligram ORAL 5 PM Qty = 30 Comments: Last Taken: 04/21/18 Time: 1640pm Metoprolol Succinate (Metoprolol Succinate) 25 MG TAB 6.25 Milligram ORAL TWICE DAILY Qty = 60 Comments: Last Taken: 03/27/17 Time: 9:45 AM Aspirin (Aspirin*) 81 MG TAB.CHEW 81 Milligram ORAL DAILY Qty = 30 Comments: Last Taken: 04/22/18 Time: 9AM Start taking the following new medications: Ciprofloxacin HCl (Cipro) 500 MG TABLET 1 Tablet ORAL TWICE DAILY Qty = 3 No Refills Instructions: . Comments: not given in hospital Metronidazole (Flagyl) 250 MG TABLET 1 Tablet ORAL EVERY 8 HOURS Qty = 4 No Refills Instructions: . Comments: iv dose given in hospital Last Taken: 04/22/18 Time: 9am Baclofen (Baclofen) 10 MG TABLET 1 Tablet ORAL THREE TIMES DAILY as needed for MUSCLE SPASMS Qty = 10 No Refills Instructions: . Comments: Last Taken: 04/21/18 Time: 2100pm Duloxetine Hydrochloride (Cymbalta) 20 MG CAPSULE.DR 1 Capsule ORAL DAILY Qty = 30 No Refills Instructions: . Comments: not given in hospital Bismuth Subsalicylate (Bismatrol) 262 MG/15 ML ORAL.SUSP 30 Milliliters ORAL AFTER MEALS & AT BEDTIME Qty = 1 No Refills Instructions: . Comments: Last Taken: 04/22/18 Time: 9am [Bentyl] 20 MG 1 Tablet ORAL 4 TIMES A DAY as needed for ABDOMINAL PAIN Qty = 20 No Refills Instructions: ... Comments: Last Taken: 04/21/18 Time: 0000am Copies To: Nikole DANG,Nikole; Keith DANG,Ryan Velarde MD,Shea; Abdias DANG,Abdi Sheffield Attending MD Review Statement Documenting Attending: Rachel Sanchez MD Other Findings: Discharged in stable condition
== END 2018-04-22 12:22 | DRG 395 ==
LOC: ERH 08:28 → ERHI 15:59 → 2NB 15:59 → CANRESERV 16:52 → ENRESERV 16:52 → EDBEDREQ 16:59 → ENRESERV 17:02 → ENTRNSPT 17:17 → CMPTRNSPT 17:35 → 2NB 17:57 → ENPENDDIS 04-22 10:56 → ENTRNSPT 04-22 11:46 → 2NB 04-22 12:22 → CMPTRNSPT 04-22 12:23
PROVIDERS: Internal Medicine; Physical Medicine & Rehabilitation Pain Medicine; Physician Assistant Medical
PROC: 0DBP8ZX Excision of Rectum, Via Natural or Artificial Opening Endoscopic, Diagnostic (ICD-10-PCS; principal; 2018-04-21)
DX: K52.1 Toxic gastroenteritis and colitis (principal); R19.7 Diarrhea, unspecified; R11.2 Nausea with vomiting, unspecified; G35 Multiple sclerosis; R32 Unspecified urinary incontinence; R53.1 Weakness; F32.9 Major depressive disorder, single episode, unspecified; I25.2 Old myocardial infarction; T45.1X5A Adverse effect of antineoplastic and immunosuppressive drugs, initial encounter; F12.90 Cannabis use, unspecified, uncomplicated; Z66 Do not resuscitate; Z98.1 Arthrodesis status; F17.210 Nicotine dependence, cigarettes, uncomplicated
CPT/HCPCS: 2NBP; 36415; 36592; 74177; 81003; 82436; 87015; 87045; 87899; 87899-59; 88305; 97110-GO; 97116-GO; 97161-GP; J0131; J0696; J1644; J3490